=== PATIENT | female | born 1985 | race Caucasian/White ===

== ENCOUNTER 2017-07-25 14:06 | Emergency (ER) | payer SELFPAY ==
[~2017-07-25] VITALS: Ht 154.9 cm; Wt 46.9 kg
[2017-07-25 14:10] VITALS: BP 122/83
[2017-07-25] MEDS ORDERED: PHEN95TA25 PO (21:05)
== END 2017-07-25 14:48 | disposition left against medical advice (07) ==
LOC: ED 14:42
DX: Z53.21 Procedure and treatment not carried out due to patient leaving prior to being seen by health care provider (principal)

== ENCOUNTER 2017-07-25 20:45 | Emergency (ER) | payer SELFPAY ==
[~2017-07-25] VITALS: Ht 160 cm; Wt 47.9 kg
[2017-07-25 20:47] VITALS: BP 139/81
[2017-07-25] MEDS ORDERED: PHEN95TA25 PO (21:05)
[2017-07-25 21:17] LABS: HEMATOCRIT 38.6 % (34.6-47.8); HEMOGLOBIN 12.6 g/dL (11.7-16.4)
[2017-07-25 21:25] LABS: BLOOD UREA NITROGEN 9 mg/dL (7-18)
[2017-07-25 21:31] LABS: ASPARTATE AMINO TRANSFERASE 17 U/L (15-37)
== END 2017-07-25 22:13 | disposition home or self-care (01) ==
LOC: ED 21:41
DX: N30.01 Acute cystitis with hematuria (principal)
CPT/HCPCS: 36415; 80053; 81001; 83690; 84703; 85025; 87077; 87086; 87186; 99284

== ENCOUNTER 2019-04-09 15:43 | Emergency (ER) | payer MEDICAID ==
[~2019-04-09] VITALS: Ht 152.4 cm; Wt 55.3 kg
[~2019-04-09 15:43] MED LIST: PHEN95TA25 PO
[2019-04-09 15:46] VITALS: BP 117/70
--- NOTE | 2019-04-09 16:04 | NUR ---
PT IN ROOM AT THIS TIME. BREATHALYZER COMPLETE AT THIS TIME. READING OF 0.00. PT SPEAKING IN FULL SENTENCES, AMBULATES WITH A STEADY GAIT. PT ENCOURAGED TO CONTACT THE [employer] RESPONSIBLE FOR THE EQUIPMENT. PT WILL BE SENT HOME WITH SUMMARY REPORT TO PRESENT TO OFFICERS.
== END 2019-04-09 16:19 | disposition home or self-care (01) ==
LOC: ED 16:13
DX: Z00.00 Encounter for general adult medical examination without abnormal findings (principal); F17.200 Nicotine dependence, unspecified, uncomplicated
CPT/HCPCS: 99281

== ENCOUNTER 2019-05-04 09:56 | Emergency (ER) | payer MEDICAID ==
[~2019-05-04] VITALS: Ht 152.4 cm; Wt 57.7 kg
[2019-05-04 10:08] VITALS: BP 129/93
--- NOTE | 2019-05-04 10:14 | NUR ---
FIRST CONTACT WITH PT. PT C/O LEFT SIDED DENTAL PAIN. PT DENIES ANY OTHER SYMPTOMS. PT'S AOX4. RESPS EVEN AND UNLABORED. PA AT BEDSIDE TO EVALUATE NOW.
--- NOTE | 2019-05-04 10:31 | NUR ---
PT GIVEN DC INSTRUCTIONS AND SCRIPTS. PT EDUCATED REGARDING DC MEDICATIONS. PT'S AOX4. RESPS EVEN AND UNLABORED. NO ACUTE DISTRESS AT DC.
== END 2019-05-04 10:32 | disposition home or self-care (01) ==
LOC: ED 10:19
DX: K02.9 Dental caries, unspecified (principal); F17.210 Nicotine dependence, cigarettes, uncomplicated
CPT/HCPCS: 99283